=== PATIENT | female | born 1970 | race Two or more races ===

== ENCOUNTER 2022-09-30 11:32 | Emergency (ER) | payer MEDICAID, OTHER ==
[~2022-09-30] VITALS: Ht 160 cm; Wt 54.0 kg
[2022-09-30 14:36] VITALS: BP 156/69
[2022-09-30] MEDS ORDERED: ACETAMINOPHEN 500 MG TAB PO ONE (15:15)
[2022-09-30] MEDS ORDERED: ACET1CAP14 PO (16:45)
== END 2022-09-30 16:55 | disposition home or self-care (01) ==
LOC: ER 11:32
DX: M79.602 Pain in left arm (principal); Z90.710 Acquired absence of both cervix and uterus; Z79.899 Other long term (current) drug therapy
CPT/HCPCS: 93971